=== PATIENT | female | born 1965 | race Two or more races ===

== ENCOUNTER 2017-07-26 16:39 | Emergency (ER) | payer OTHER ==
[~2017-07-26] VITALS: Ht 175.3 cm; Wt 90.7 kg
== END 2017-07-26 20:50 | disposition home or self-care (01) ==
LOC: ER 16:39 → CPU-OBS 16:45 → ER 16:45
DX: I49.5 Sick sinus syndrome (principal); R07.89 Other chest pain
CPT/HCPCS: G0379; 93005